=== PATIENT | female | born 1950 | race Caucasian/White ===

== ENCOUNTER 2016-08-04 10:14 | Emergency (ER) | payer OTHER, MEDICARE ==
[~2016-08-04] VITALS: Ht 165.1 cm; Wt 93.9 kg
[~2016-08-04 10:14] MED LIST: ALENDRONATE SOD70 MG PO; ALL 100 SUPER B1 TAB PO; ATORVASTATIN CA20 MG PO; AUGMENTIN 875 M1 TAB PO; CALCIUM + D 6001 TAB PO; COCONUT OIL PO; FIBER CHOICE1 CTB PO; FLONASE120 SPRAY/ NAS; LOSARTAN POTASS50 MG PO; MULTIVITAMIN1 TAB PO; NORVASC 5MG TAB5 MG PO; ROBITUSSIN W/CO10 ML PO; ZITHROMAX Z-PA250 M1 PO
--- NOTE | 2016-08-04 10:29 | ED GENERAL ADULT ---
History of Present Illness General Chief Complaint: Shoulder Injury Stated Complaint: R SHOULDER PAIN Source: patient Exam Limitations: no limitations Vital Signs & Intake/Output Vital Signs & Intake/Output Vital Signs Date Time Temp Pulse Resp B/P Pulse O2 O2 Flow FiO2 Ox Delivery Rate 08/04 1021 98.6 104 18 152/91 96 Room Air Room Air Allergies Coded Allergies: MDX - SULFA (sulfonamide) (SULFA (SULFONAMIDE)) (Intermediate, RASH 05/08/15) MDX - Bee Venom (BEE VENOM) (UNKNOWN 03/28/14) Reconcile Medications Alendronate Sodium 70 MG TAB 1 TAB PO QW BONE (Reported) in the morning, at least 30 minutes before the first food, beverage, or medication of the day Amlodipine (Norvasc 5MG Tab) 5 MG TAB 1 TAB PO DAILY HEART (Reported) AMOXICILLIN/POTASSIUM CLAV (Augmentin 875-125 Tablet) 875 MG/125 MG TAB 1 TAB PO BID SINUSITIS Atorvastatin Calcium (Lipitor) 20 MG TAB 1 TAB PO DAILY CHOLESTEROL (Reported ) Calcium/Vitamin D (Calcium + D) 600 MG/200 IU TAB 1 TAB PO BID SUPPLEMENT ( Reported) Coconut Oil (Coconut Oil 100 Ml) 100 ML OIL 1 PO DAILY SUPPLEMENT (Reported) Fiber (Fiber Choice) 1 CTB CTB 1 TAB PO DAILY SUPPLEMENT (Reported) Fluticasone Propionate (Flonase) 120 SPRAY/BOT SPR 2 SPRY BARBARA DAILY SINUSITIS Losartan Potassium 50 MG TAB 1 TAB PO DAILY HEART (Reported) Meloxicam (Mobic) 7.5 MG TABLET 1 TAB PO DAILY PRN pain Multivitamin (Multiple Vitamins) 1 TAB TAB 1 TAB PO DAILY SUPPLEMENT ( Reported) Robitussin AC (Guaifenesin-Codeine Syrup) 10 ML UDC 5-10 ML PO Q6H PRN COUGH Vitamin B Complex (All 100 Super B Complex) 1 TAB TAB 1 TAB PO DAILY SUPPLEMENT (Reported) Triage Note: TRIAGE: 66 Y/O FEMALE PRESENTS C/O 3/10 DULL ACHING RIGHT SHOULDER PAIN S/P LIFTING SPOUSE RECENTLY X WEEKS. Triage Nurses Notes Reviewed? yes Onset: Abrupt Duration: week(s): Timing: recent history HPI: 08/04/16 66-year-old female presents to the emergency department complaining of right shoulder pain. The patient states she was in her usual state of health until approximately the past 2 weeks when she developed ongoing right-sided shoulder pain, she says it's worse with activity. She has been helping her who is been injured and using a cane. The onset of the symptoms were abrupt, the duration has been 2 weeks, the severity is significant as her symptoms required her to come to the emergency department for care. She has anterior tenderness on the right shoulder and tenderness along the lateral aspect of the right shoulder. Differential diagnosis includes bursitis in right deltoid muscle strain. She also may have arthritis. An x-ray of the right shoulder was ordered she was given ibuprofen for pain. She has a past medical history of hypertension, hyperlipidemia, and osteopenia. Past surgical history is not significant. She has no known drug allergies. She takes lisinopril for her blood pressure. Past History Travel History Traveled to [place] past 21 day No Medical History Any Pertinent Medical History? see below for history Neurological: NONE EENT: NONE Cardiovascular: hypertension, hyperlipidemia Respiratory: NONE Gastrointestinal: NONE Hepatic: NONE Renal: NONE Musculoskeletal: NONE Psychiatric: NONE Endocrine: NONE Blood Disorders: NONE Cancer(s): NONE STILL OPERATOR HELPER/Reproductive: NONE Surgical History Surgical History: non-contributory Psychosocial History What is your primary language [place] Tobacco Use: Never used ETOH Use: denies use Illicit Drug Use: denies illicit drug use Family History Hx Contributory? No Review of Systems Review of Systems Constitutional: Denies: fever. EENTM: Denies: visual changes. Respiratory: Denies: short of breath. Cardiovascular: Denies: chest pain. GI: Denies: abdominal pain. Genitourinary: Reports: no symptoms. Musculoskeletal: Reports: see HPI. Skin: Reports: no symptoms. Neurological/Psychological: Reports: no symptoms. Hematologic/Endocrine: Reports: no symptoms. Immunologic/Allergic: Reports: no symptoms. Physical Exam Physical Exam General Appearance: well developed/nourished, alert, awake, anxious, mild distress Head: atraumatic, normal appearance, active bleeding Eyes: Bilateral: normal appearance, PERRL, EOMI. Ears, Nose, Throat: normal pharynx, normal ENT inspection Neck: normal inspection, supple Respiratory: normal breath sounds, chest non-tender Cardiovascular: regular rate/rhythm Peripheral Pulses: 4+ radial (R), 4+ radial (L) Gastrointestinal: non-tender Back: normal range of motion Extremities: normal range of motion Neurologic/Psych: no motor/sensory deficits, awake, alert, oriented x 3 Skin: intact, normal color, warm/dry Core Measures ACS in differential dx? No CVA/TIA Diagnosis: No Severe Sepsis Present: No Septic Shock Present: No Progress Differential Diagnoses I considered the following diagnoses in my evaluation of the patient: [Bursitis, muscle strain, arthritis] Plan of Care: Orders Procedure Date/time Status Durable Medical Equipment 08/04 1321 Active Initial ED EKG: none Departure Departure Disposition: HOME OR SELF CARE Condition: Stable Clinical Impression Primary Impression: Bursitis Referrals: MARIBELL ROMO APRN (PCP/Family) Departure Forms: Customer Survey General Discharge Information Prescriptions: Current Visit Scripts Meloxicam (Mobic) 1 TAB PO DAILY PRN pain #10 TAB Comments PATIENT: LIEN CARRERA PRESENT AGE: 66 PATIENT ACCOUNT NO: [id number] : 50 LOCATION: [facility] ORDERING PHYSICIAN: EMMA RAZA DO SERVICE DATE: 08/04/16-1106 EXAM TYPE: RAD - XRY-SHOULDER COMPLETE-RIGHT EXAMINATION: XR SHOULDER, RIGHT CLINICAL INFORMATION: 66-year-old woman with right shoulder pain. COMPARISON: None TECHNIQUE: Three views of the right shoulder. FINDINGS: The bones and soft tissues are normal. No fracture. Glenohumeral and acromioclavicular alignment is anatomic with normal joint space. No abnormal soft tissue calcifications. IMPRESSION: No evidence of acute fracture or dislocation. DICTATED BY: ALBAN ANDREWS MD DATE/TIME DICTATED:08/04/161252 SOLDERER DIPPER:BINA DATE/TIME TRANSCRIBED:08/04/161252 CONFIDENTIAL, DO NOT COPY WITHOUT APPROPRIATE AUTHORIZATION. <Electronically signed in Other Vendor System> SIGNED BY: ALBAN ANDREWS MD 08/04/16 1257 Critical Care Note Critical Care Note Critical Care Time: non-applicable Critical Care Note Critical Care Time: non-applicable
--- NOTE | 2016-08-04 12:57 | RADIOLOGY REPORT ---
EXAMINATION: XR SHOULDER, RIGHT CLINICAL INFORMATION: 66-year-old woman with right shoulder pain. COMPARISON: None TECHNIQUE: Three views of the right shoulder. FINDINGS: The bones and soft tissues are normal. No fracture. Glenohumeral and acromioclavicular alignment is anatomic with normal joint space. No abnormal soft tissue calcifications. IMPRESSION: No evidence of acute fracture or dislocation.
[2016-08-04] MEDS ORDERED: MOBIC7.5 M1 PO (13:20)
[2016-08-04 13:34] VITALS: BP 150/90
== END 2016-08-04 13:35 ==
LOC: ERH 10:14
DX: M75.51 Bursitis of right shoulder (principal)
CPT/HCPCS: 73030-RT

== ENCOUNTER → 2017-07-02 | Day surgery (SDC) | payer OTHER, MEDICARE ==
[~2017-07-02] VITALS: Ht 165.1 cm; Wt 88.9 kg
[~2017-07-02] MED LIST changes: +CIPRO500 M1 PO; +LOMOTIL 2.5-0.1 EACH PO; +MOBIC7.5 M1 PO; +PERCOCET 5-3251 EACH PO; +ZOFRAN ODT4 M1 SL
--- NOTE | 2017-07-09 12:34 | Operative Report ---
Operative/Inv Procedure Report Surgery Date: 07/02/17 Name of Procedure: left ureter ESWL/fluoroscopy Pre-Operative Diagnosis: left ureter stone with stent and hydronephrosis Post-Operative Diagnosis: same Estimated Blood Loss: scant Surgeon/Family Life Counselor: Joshua Wilson MD Anesthesia: laryngeal mask airway Specimens: none Complications: none Operative/Procedure Note Note: The patient was taken to the operating room and placed on the ESWL table in supine position. Time out was performed, with the patient awake, to confirm identity, procedure, laterality, and other pertinent cornell-operative information. After adequate anesthesia, the patient was positioned so that the left flank was placed over the ESWL table cut-out, and overlying the dome of the shockwave generator. C-arm fluroscopy, as well as renal US was used to locate the stone, and evaluate the left kidney. The stone was visible on fluroloscopy at the distal-left ureter. Renal US confirmed mild hydronephrosis, with no additional stone seen in the left kidney. The left ureter stone was approximate 10 mm in size, and faintly visible with fluoroscopy. Using fluoroscopy, the position of the ureter stone was optimized for ESWL, using AP, and oblique views of the stone. Subsequently, E.S.W.L. was initiated at low power levels x 200 shocks. After noting the patient's tolerance to the shockwaves, the shock wave power level was quickly maximized. At the end of the procedure, the composition of the stone had changed significantly indicating the pulverization of the ureter stone. A total of 3000 shockwaves were delivered to the stone in order to achieve adequate lithotrypsy. The patient tolerated the procedures well, was awakened, and taken to recovery in satisfactory condition via stretcher. The pt will eventually be dischared to home with pain meds, diet orders, and intructions to catch fragments with straining the urine. The patient is to have follow-up renal ultrasound and KUB (after the left renal stone is treated as well). Discharge Disposition: PACU CC: Joshua Wilson MD
== END ==
LOC: STS 07:00
DX: N13.2 Hydronephrosis with renal and ureteral calculous obstruction (principal); I10 Essential (primary) hypertension
CPT/HCPCS: J2250

== ENCOUNTER → 2017-12-17 | Day surgery (SDC) | payer OTHER ==
[~2017-12-17] VITALS: Ht 165.1 cm; Wt 87.5 kg
--- NOTE | 2017-12-17 12:44 | Operative Report ---
Operative/Inv Procedure Report Surgery Date: 12/17/17 Name of Procedure: left ureter ESWL. fluoroscopy Pre-Operative Diagnosis: left ureter stone Post-Operative Diagnosis: same Estimated Blood Loss: none Surgeon/Child Development Assistant: Joshua Wilson MD Anesthesia: moderate sedation Complications: none Operative/Procedure Note Note: The patient was taken to the operating room and placed on the ESWL table in supine position. Time out was performed, with the patient awake, to confirm identity, procedure, laterality, and other pertinent cornell-operative information. After adequate anesthesia, the patient was positioned so that the left flank was placed over the ESWL table cut-out, and overlying the dome of the shockwave generator. C-arm fluroscopy, as well as renal US was used to locate the stone, and evaluate the left kidney. The stone was visible on fluroloscopy at the mid- left ureter. Renal US confirmed hydronephrosis, with one additional stone seen in the left kidney. The left ureter stone was approximate 12mm in size, and clearly visible with fluoroscopy. Using fluoroscopy, the position of the ureter stone was optimized for ESWL, using AP, and oblique views of the stone. Subsequently, E.S.W.L. was initiated at low power levels x 200 shocks. After noting the patient's tolerance to the shockwaves, the shock wave lithotripor power level was quickly maximized. At the end of the procedure, the composition of the stone had changed significantly indicating the pulverization of the ureter stone. A total of 3000 shockwaves were delivered to the stone in order to achieve adequate lithotrypsy. All sponge needle and instrument count were correct at the end of the case. The patient tolerated the procedure well, was awakened, and taken to recovery in satisfactory condition via stretcher. The pt will eventually be dischared to home with pain meds, diet orders, and intructions to catch fragments with straining the urine. The patient is to have follow-up renal ultrasound and KUB (after the left renal stone is treated as well). Discharge Disposition: Same Day Admissions CC: Joshua Wilson MD
== END ==
LOC: STS 01:47
DX: N13.2 Hydronephrosis with renal and ureteral calculous obstruction (principal); I10 Essential (primary) hypertension; M19.90 Unspecified osteoarthritis, unspecified site; Z87.442 Personal history of urinary calculi
CPT/HCPCS: 93005; 93010

== ENCOUNTER → 2018-01-02 | Day surgery (SDC) | payer OTHER ==
[~2018-01-02] VITALS: Ht 165.1 cm; Wt 87.5 kg
--- NOTE | 2018-01-03 10:40 | RADIOLOGY REPORT ---
EXAMINATION: XR ABDOMEN CLINICAL INDICATION: Ureteroscopy. Stent placement. COMPARISON: Renal ultrasound from 12/20/2017 TECHNIQUE: Intraoperative fluoroscopic imaging of the abdomen. Number of saved images: 54 Fluoroscopy time: 49 seconds. FINDINGS: Please refer to the operative report. Patient underwent left ureteroscopy and left ureteral stent placement. IMPRESSION: Intraoperative fluoroscopic guidance was provided to Dr. Wilson within the operating room.
--- NOTE | 2018-01-09 12:42 | Operative Report ---
See Addendum Operative/Inv Procedure Report Surgery Date: 01/02/18 Name of Procedure: cysto: left stent removal: left ureteroscopy with lasesr lithotrypsy of steinstrauss stones Pre-Operative Diagnosis: left steinstrauss Post-Operative Diagnosis: same Estimated Blood Loss: scant, less than 50ml Surgeon/Cashiers Bussers Food Runners: Joshua Wilson MD Anesthesia: laryngeal mask airway Specimens: left ureter stones Complications: none Operative/Procedure Note Note: The patient was taken to the operating room and placed on the OR table in supine position. Timeout was performed, with the patient awake, in order to confirm correct identity, procedure, laterality, and other pertinent cornell-operative information. After adequate anesthesia and antibiotics, the old caba was removed, and the patient was then placed in lithotomy stirrups, draped and prepped in the usual surgical fashion. The Holmium Yag Laser was confirmed in the room and on standby. A 22 Czech cystoscope sheath with 30 angle lens was inserted into the bladder without difficulty. Upon entering the bladder, the bladder was noted to be free of tumor , and free of stone. Both orifices were in their orthotopic position, with clear efflux of urine from the right. The left ureter orifice was intubated with an 8fr cone-tip catheter and a retrograde pyelogram with fluoroscopy was performed revealing mild hydronephrosis, but no filling defects. The cone-tipped catheter was removed, followed by insertion of a 0.035 Glidewire, which was advanced into the left renal pelvis without difficulty, with fluoroscopic visualization. Leaving the Glidewire in place, the cystoscope was removed. The Flexible ureteroscope was railroaded over the gluidewire, following it with fluoroscopic visualization, into the bladder, up the left ureter, and into the left renal pelvis, with fluoroscopy visualization. A retrograde pyelogram was again performed via the ureteroscope revealing no filling defect, normal appearing left renal anatomy. Pyeloscopy/calyxoscopy of the upper, middle, and lower poles reveal no evidence of tumor, no evidence of stones. Additionally, NO other stones, nor any tumor was visualized in the renal pelvis. At this point the standby laser was disengaged. The entire length of the ureter was also visualized carefully on the way out, and the same findings (no stones or tumor) was confirmed. The bladder was then drained after the ureteroscope was removed. The patient tolerated the procedure well was then taken to the recovery room in satisfactory condition. She is to follow up in 4 weeks for POC. Discharge Disposition: PACU CC: Joshua Wilson MD
== END ==
LOC: STS 02:11
DX: N13.2 Hydronephrosis with renal and ureteral calculous obstruction (principal); Z87.442 Personal history of urinary calculi; I10 Essential (primary) hypertension; M19.90 Unspecified osteoarthritis, unspecified site
CPT/HCPCS: 74018; 82355; C2617; J2250